=== PATIENT | female | born 1990 | race Caucasian/White ===

== ENCOUNTER 2021-07-05 09:03 | Outpatient (CLI) | payer BC, SELFPAY ==
[2021-07-05 10:00] LABS: Estradiol 40.3 pg/mL
[2021-07-08 15:28] LABS: Anti-Mullerian Hormone Female 4.42 ng/mL (0.36-10.07)
== END 2021-07-05 09:04 | disposition home or self-care (01) ==
PROVIDERS: PCP Electrodiagnostic Medicine; Visit Provider Obstetrics & Gynecology
DX: N97.9 Female infertility, unspecified (principal)
CPT/HCPCS: 82670; 83001; 83520

== ENCOUNTER → 2021-10-14 08:55 | Outpatient (BNVA) | payer BC, SELFPAY | PROVIDERS: PCP Electrodiagnostic Medicine; Visit Provider Nurse Practitioner Women's Health | DX: N92.6 Irregular menstruation, unspecified (principal) | CPT/HCPCS: 81025 ==

== ENCOUNTER → 2021-11-07 15:54 | Outpatient (BNVA) | payer BC, SELFPAY | PROVIDERS: PCP Electrodiagnostic Medicine; Visit Provider Obstetrics & Gynecology | DX: Z34.90 Encounter for supervision of normal pregnancy, unspecified, unspecified trimester (principal) | CPT/HCPCS: 80307; 84315; 85027; 86592; 86762; 86803; 86850; 86900; 87086; 87340; 87806 ==

== ENCOUNTER → 2021-11-17 10:42 | Outpatient (BNVA) | payer BC, SELFPAY | PROVIDERS: PCP Electrodiagnostic Medicine; Visit Provider Obstetrics & Gynecology | DX: Z34.80 Encounter for supervision of other normal pregnancy, unspecified trimester (principal); Z12.4 Encounter for screening for malignant neoplasm of cervix | CPT/HCPCS: 84315; 87491; 87591; 87624 ==

== ENCOUNTER → 2022-01-14 14:51 | Outpatient (BNVA) | payer BC, SELFPAY | PROVIDERS: PCP Electrodiagnostic Medicine; Visit Provider Obstetrics & Gynecology | DX: Z36.87 Encounter for antenatal screening for uncertain dates (principal) | CPT/HCPCS: 76805 ==

== ENCOUNTER 2022-02-13 10:28 | Outpatient (CLI) | payer BC, SELFPAY ==
--- NOTE | 2022-02-13 11:00 | US_ITS ---
WS: [id number] ULTRASOUND OB FOCUSED HISTORY: Follow-up anatomy. Reevaluate profile, heart, head and spine. COMPARISON: 01/14/2022 Single intrauterine gestation in cephalic position. Cervix is closed measuring 4.2 cm. Normal amount of amniotic fluid surrounds the fetus. heart rate at 144 BPM. head is better seen on today's examination. Normal size ventricles. No midline shift. Shape of the head is normal. Normal appearance of the profile. spine is normal. The distal spine is post erior during the examination but no abnormality is identified. Four-chamber heart. Normal outflow tra cts. US/US OB >= 14 weeks fetus [id number] IMPRESSION: 1. Normal four-chamber heart and outflow tracts. 2. Reevaluation of the spine, profile and head are now unremarkable.
== END 2022-02-13 10:29 | disposition home or self-care (01) ==
LOC: RAD 10:32
PROVIDERS: PCP Electrodiagnostic Medicine; Visit Provider Obstetrics & Gynecology
DX: Z34.92 Encounter for supervision of normal pregnancy, unspecified, second trimester (principal); Z36.89 Encounter for other specified antenatal screening
CPT/HCPCS: 76805

== ENCOUNTER → 2022-02-17 09:21 | Outpatient (BNVA) | payer BC, SELFPAY | PROVIDERS: PCP Family Medicine; Visit Provider Obstetrics & Gynecology | DX: Z34.00 Encounter for supervision of normal first pregnancy, unspecified trimester (principal) | CPT/HCPCS: 82950; 84315 ==

== ENCOUNTER → 2022-03-10 16:39 | Outpatient (BNVA) | payer BC, SELFPAY | PROVIDERS: PCP Family Medicine; Visit Provider Obstetrics & Gynecology | DX: Z34.00 Encounter for supervision of normal first pregnancy, unspecified trimester (principal) | CPT/HCPCS: 84315; 85027 ==

== ENCOUNTER 2022-03-26 11:45 | Outpatient (CLI) | payer BC, SELFPAY ==
[2022-03-26 11:45] VITALS: BMI 34.4
[2022-03-26 11:55] VITALS: BP 139/67; PULSE 64
--- NOTE | 2022-03-26 12:04 | US_ITS ---
WS: [id number] BIOPHYSICAL PROFILE AMNIOTIC FLUID HISTORY: DECREASED MOVEMENT COMPARISON: 02/13/2022 Cardiac activity: 131 bpm. Cervix: Obscured by the fetus. Placenta: Fundal, no previa or abruption. Placenta grade: 1 position: Breech. Parameters are as follows: Breathin Movement: 2 Tone: 2 Fluid volume: 2 Amniotic fluid index: 12.2 cm. Largest vertical pocket of amniotic fluid 5.3 cm. US/US OB BPP wo NST [id number] IMPRESSION: 1. Biophysical profile score: 6/8. 2. Normal amniotic fluid index. 3. Breech. 4. Normal cardiac activity.
[2022-03-26 12:16] VITALS: BP 130/71; PULSE 71
[2022-03-26 12:35] VITALS: BP 132/73; PULSE 69
[2022-03-26 13:05] VITALS: BP 132/73; PULSE 69; RESP 18
== END 2022-03-26 13:00 | disposition home or self-care (01) ==
LOC: OPOB 11:49 → OBGYN 11:50
PROVIDERS: PCP Family Medicine; Visit Provider Obstetrics & Gynecology
DX: O36.8190 Decreased fetal movements, unspecified trimester, not applicable or unspecified (principal); Z3A.00 Weeks of gestation of pregnancy not specified
CPT/HCPCS: 59025; 76819; 84315; 99211

== ENCOUNTER → 2022-05-05 10:53 | Outpatient (BNVA) | payer BC, SELFPAY | PROVIDERS: PCP Family Medicine; Visit Provider Obstetrics & Gynecology | DX: Z34.00 Encounter for supervision of normal first pregnancy, unspecified trimester (principal) | CPT/HCPCS: 76815; 84315; 87081 ==

== ENCOUNTER 2022-05-19 11:35 | Outpatient (CLI) | payer BC, SELFPAY ==
[2022-05-19] VITALS (7 sets, daily range): BP systolic 119–133; BP diastolic 81–90; PULSE 87–93; RESP 18; BMI 35.9
[2022-05-19 12:32] LABS: Add Urine Microscopic? NO; Charge for UA Resulting for Rev
[2022-05-19 12:33] LABS: Bilirubin Urine Neg (Negative); Blood Urine Neg (Negative); Glucose Urine UA Norm (Normal); Ketones Urine Negative (Negative); Leukocyte Esterase Urine Negative (Negative); Nitrate Urine Negative (Negative); Protein Urine Neg (Negative); Urine Appearance Clear (CLEAR); Urine Color Yellow (Yellow); Urobilinogen Urine Norm (Negative); pH Urine 7 (5-7)
[2022-05-19 12:36] LABS: Basophils % 0.2 %; Eosinophils # 0.1 10^3/uL (0.0-0.8); Eosinophils % 0.8 %; Hematocrit 38.5 % (37.0-47.0); Hemoglobin 12.7 g/dL (11.5-15.3); Lymphocytes # 1.5 10^3/uL (0.8-4.8); Lymphocytes % 15.5 %; Mean Corpuscular Hemoglobin 28.9 pg (28.0-34.0); Mean Corpuscular Volume 87.7 fl (81-99); Mean Platelet Volume 10.9 fL (7.4-10.4); Monocytes % 9.7 %; Neutrophils # 7.22 10^3/uL (1.8-7.7); Neutrophils % 73.4 %; Nucleated Red Blood Cells % 0 %; Platelet Count 264 10^3/cmm (130-400); Red Blood Count 4.39 10^6/uL (4.1-5.3); Red Cell Distribution Width 13.2 % (12.1-15.1); White Blood Count 9.8 10^3/uL (4.0-10.0)
[2022-05-19 12:52] LABS: Alanine Aminotransferase 9 U/L (0-33); Albumin Level 3.4 g/dL (3.5-5.2); Alkaline Phosphatase 169 U/L (35-105); Aspartate Amino Transferase 17 U/L (0-32); Blood Urea Nitrogen 7 mg/dL (6-20); Calcium 9.1 mg/dL (8.5-10.5); Carbon Dioxide 20 mmol/L (22-29); Chloride 107 mmol/L (98-107); Globulin 3.1 g/dL (1.3-4.6); Glucose 78 mg/dL (65-115); Osmolality Calculated 283 mOsm/kg (285-295); Sodium 138 mmol/L (136-145); Total Bilirubin 0.2 mg/dL (0.15-1.2); Total Protein 6.5 g/dL (6.6-8.7); Uric Acid 3.3 mg/dL (2.4-5.7); Urine Creatinine 24 mg/dL (28-217); Urine Protein Random 4 mg/dL
[2022-05-19 12:53] LABS: UPRO/UCREAT Ratio 0.17 mg/mg CR
== END 2022-05-19 13:10 | disposition home or self-care (01) ==
LOC: OPOB 11:42 → OBGYN 11:44
PROVIDERS: PCP Family Medicine; Visit Provider Obstetrics & Gynecology
DX: O16.9 Unspecified maternal hypertension, unspecified trimester (principal); Z3A.00 Weeks of gestation of pregnancy not specified
CPT/HCPCS: 36415; 59025; 80053; 81003; 82570; 84156; 84315; 84550; 85025; 99211

== ENCOUNTER 2022-06-02 16:24 | Inpatient (IN) | payer BC, SELFPAY ==
[2022-06-02] VITALS (19 sets, daily range): BP systolic 113–150; BP diastolic 57–88; PULSE 71–93; RESP 16–18; BMI 36.5
[2022-06-02 14:57] LABS: Basophils % 0.1 %; Eosinophils # 0.1 10^3/uL (0.0-0.8); Eosinophils % 0.8 %; Hematocrit 40.2 % (37.0-47.0); Hemoglobin 13.3 g/dL (11.5-15.3); Lymphocytes # 1.9 10^3/uL (0.8-4.8); Mean Corpuscular HGB Conc 33.1 g/dL (30.0-36.0); Mean Corpuscular Volume 87.8 fl (81-99); Mean Platelet Volume 10.9 fL (7.4-10.4); Monocytes # 0.8 10^3/uL (0.2-0.9); Monocytes % 8.7 %; Neutrophils # 5.91 10^3/uL (1.8-7.7); Neutrophils % 67.9 %; Nucleated Red Blood Cells % 0 %; Platelet Count 287 10^3/cmm (130-400); Red Blood Count 4.58 10^6/uL (4.1-5.3); Red Cell Distribution Width 13.6 % (12.1-15.1); White Blood Count 8.7 10^3/uL (4.0-10.0)
[2022-06-02 15:14] LABS: Alanine Aminotransferase 7 U/L (0-33); Albumin Level 3.8 g/dL (3.5-5.2); Alkaline Phosphatase 204 U/L (35-105); Anion Gap 17.9 (5-19); Aspartate Amino Transferase 12 U/L (0-32); Blood Urea Nitrogen 8 mg/dL (6-20); Calcium 9.3 mg/dL (8.5-10.5); Carbon Dioxide 18 mmol/L (22-29); Chloride 103 mmol/L (98-107); Globulin 3.2 g/dL (1.3-4.6); Glucose 78 mg/dL (65-115); Osmolality Calculated 277 mOsm/kg (285-295); Potassium 3.9 mmol/L (3.5-5.1); Sodium 135 mmol/L (136-145); Total Bilirubin 0.2 mg/dL (0.15-1.2); Uric Acid 3.1 mg/dL (2.4-5.7)
[2022-06-02 15:16] LABS: Add Urine Culture? No; Bacteria Urine 3+ /hpf; Bilirubin Urine Neg (Negative); Blood Urine Neg (Negative); Glucose Urine UA Norm (Normal); Ketones Urine Negative (Negative); Leukocyte Esterase Urine Negative (Negative); Nitrate Urine Negative (Negative); Protein Urine Neg (Negative); RBC Urine 0-4 /hpf (0-2); Specific Gravity, Urine 1.005 (1.005-1.030); Urine Appearance Clear (CLEAR); Urine Color Yellow (Yellow); Urobilinogen Urine Norm (Negative); pH Urine 6 (5-7)
[2022-06-02 15:27] LABS: Urine Creatinine 58 mg/dL (28-217); Urine Protein Random 10 mg/dL
[2022-06-02 15:28] LABS: UPRO/UCREAT Ratio 0.17 mg/mg CR
[2022-06-02] MEDS: miSOPROStol 100 mcg tablet 25 MCG VAGINAL ×2 (16:47→20:55)
[2022-06-02] MEDS: ampicillin 2,000 MG in sodium chloride 0.9% (plus) 50 ML 100 MG IV (18:25)
[2022-06-02] MEDS: dextrose 5%-lactated ringers 1,000 ML 125 ML IV (18:25)
[2022-06-02] MEDS: ampicillin 1,000 MG in sodium chloride 0.9% (plus) 50 ML 100 MG IV (23:55)
[2022-06-03] VITALS (37 sets, daily range): BP systolic 112–141; BP diastolic 56–87; PULSE 64–104; RESP 16–17; TEMP 36.7–37
[2022-06-03] MEDS: miSOPROStol 100 mcg tablet 25 MCG VAGINAL ×2 (00:53→05:26)
[2022-06-03] MEDS: oxytocin 30 UNIT/500 ML BAG IV (10:08)
[2022-06-03] MEDS: dextrose 5%-lactated ringers 1,000 ML 125 ML IV ×2 (12:53→20:59)
[2022-06-03] MEDS: acetaminophen 325 mg Tablet 650 MG PO (15:45)
[2022-06-03] MEDS: morphine 4 mg/mL SDV 1 mL 8 MG IM (23:48)
[2022-06-03] MEDS: promethazine 25 mg/mL SDV 1 mL IM (23:48)
[2022-06-04] VITALS (68 sets, daily range): BP systolic 110–179; BP diastolic 56–114; PULSE 59–96; RESP 15–20; TEMP 36.1–37.1
[2022-06-04] MEDS: oxytocin 30 UNIT/500 ML BAG 19 UNIT IV (09:20)
[2022-06-04] MEDS: fentaNYL 50 mcg/mL INJ 2mL IVP ×8 (13:23→23:34)
--- NOTE | 2022-06-04 14:56 | US_ITS ---
WS: [id number] ULTRASOUND OB FOCUSED HISTORY: presentation COMPARISON: 05/05/2022 Single intrauterine gestation is identified. Fetus in vertex presentation. Cervix is partially obscur ed by the head but does appear closed. heart rate at 136 BPM. Amniotic fluid index 12.3 cm. Maximal vertical pocket of amniotic fluid 4.2 cm. Placenta is fundal. Grade 2. US/US OB limited [id number] IMPRESSION: 1. Vertex presentation. 2. Normal cardiac activity.
[2022-06-04] MEDS: dextrose 5%-lactated ringers 1,000 ML 90 ML IV (21:34)
[2022-06-05] VITALS (54 sets, daily range): BP systolic 100–171; BP diastolic 49–87; PULSE 62–90; RESP 16–17; TEMP 36.7–37.1; O2SAT 97–100
[2022-06-05] MEDS: lactated ringers 1,000 ML 999 ML IV (00:53)
--- NOTE | 2022-06-05 01:26 | P.ANESUD_ITS ---
Pre-Anesthetic Update Pre-Anesthetic Assessment: Date of Surgery/Procedure: 06/05/22 Preop Jerica gnosis: IUP Proposed Procedure: labor epidural Any changes to Pre-Anesthetic Assessment?: No Last Intake: 1899 Vitals: Temperature 98.8 F 06/04/22 16:59 Temperature Source Oral 06/04/22 06:00 Pulse Rate 90 06/05/22 01:20 Respiratory Rate 20 H 06/04/22 23:34 Respiratory Effort 06/04/22 23:34 Respiratory Depth Normal 06/04/22 23:34 Respiratory Patter n 06/04/22 23:34 Blood Pressure 126/81 06/05/22 01:18 Pulse Oximetry 98 06/05/22 01:20 Oxygen Delivery Me thod 06/02/22 16:19 Exam: Pre-Anes Outpt Exam: alert, oriented x 3, clear to auscultation bilaterally and regular rate & rhythm Cardiac Studies: No Data to Display Anesthesia Procedures Epidural: Time Out Performed: Yes Consents Signed: Procedure Consent Consent: requested by attending/covering physician, from patient, risks and benefits reviewed and patient agrees to proceed Lumbar Level: L4-L5 Epidural position: sitting Epidural procedure: sterile prep of area, 1% lidocaine to numb the area, 18 g needle, negative for paresthesia passed, neg for paresthesia, test dose given, 1.5% xylocaine 1:200k epi, placed PCEA, no systemic response, sterile dressing applied, L.U.D. no apparent complications and 0.2% Ropiavacaine @ mls/hr (13) Additional Comments: GABBY 7cm
[2022-06-05] MEDS: oxytocin 30 UNIT/500 ML BAG 35 UNIT IV (02:08)
--- NOTE | 2022-06-05 06:58 | PM.PN ---
Subjective Subjective: Mrs Deven Mahajan with an EGA at 40+3 admitted for induction due to gestational hypertension. Refers she is tire and she doesnt want to continue. Vitals/I&O/Wt Last Vital Signs Temp 98.8 F 06/04/22 16:59 Pulse 82 06/05/22 06:13 Resp 20 H 06/04/22 23:34 BP 134/67 06/05/22 06:13 Pulse Ox 98 06/05/22 01:20 O2 Del Method 06/02/22 16:19 06/04/22 06/04/22 06/05/22 14:59 22:59 06:59 Intake Total 150.350 / 761.510 6396.382 / 9533.416 6640.150 / 3284.882 Balance 150.350 / 148.239 7035.382 / 0921.887 0964.150 / 3284.882 Physical Exam Narrative: GA: Alert and oriented ?3. Lungs: Clear to auscultation bilaterally. Heart: Regular rhythm and rate. Abdomen: Gravid, full the height equals dates, nontender. PICK OUT HAND: SVE; dilation: 1-2 cm, effacement: 75%, station: -2, presentation: vx, membranes: AROM clear. Extremities: no edema, no cyanosis, no calves pain. heart tracing: Basal rate: 140's bpm, Variability: moderate, Accelerations: present, Decelerations: Occasional variable, Contraction: q4-5min. Urinary Catheter Management: Winslow Latex: Cath Placed During This Visit: yes Reason for Continuing Indwelling Catheter: Other Urinary Catheter Date of Insertion: 06/05/22 Urinary Catheter Time of Insertion: 01:48 Data : 06/02/22 14:35 06/02/22 14:35 A&P Assessment and plan (1) Term : Mrs Deven Mahajan with an EGA at 40+3 admitted for induction due to gestational hypertension. She was started with misoprostol for cervical ripening, and then with Pitocin, and she have a very slow progression. A Cook cervical dilator balloon was tried without success. The Fetus overnight show occasional variable decelerations, having to reposition the patient on multiple times, making it a heart trace category 2, with no significant progression in dilation and descent after adequate induction. Patient was counseled, she refers she is tired and she does not want to proceed any longer, she was counseled regarding recommended primary low t transverse delivery due to failure to progress and nonreassuring status, her and her agreed. She was counseled regarding and was informed of the risks and benefits of primary low transverse delivery. Risks included but were not limited to bleeding, infection, and injury to the vagina, bladder, or urethra, internal organs and incomplete resolution of symptoms. The patient expressed understanding of the risks involved, all questions were answered, and the patient consented to the procedure and signed informed consent. (2) Gestational hypertension without significant proteinuria during in third trimester, antepartum: Attestations Medical Necessity Statement*: In my professional opinion per admitting diagnosis Coding Level of Care Code Acute Staff Radiographer for Brenna Fwd Diagnoses Term Z34.90 Gestational hypertension without significant proteinuria during in third trimester, antepartum O13.3
[2022-06-05] MEDS: citric acid-sodium citrate 30 mL UDC PO (07:05)
[2022-06-05] MEDS: metoclopramide 5 mg/mL SDV 2 mL 10 MG IVP (07:07)
[2022-06-05] MEDS: famotidine 20 mg/2 mL INJ IVP (07:07)
[2022-06-05] MEDS: ceFAZolin 2,000 MG in sodium chloride 0.9% (plus) 50 ML 100 MG IV (08:40)
--- NOTE | 2022-06-05 09:49 | P.OP_ITS ---
Operative Report Date of procedure: June 05, 2022 Pre-op diagnosis: Preop Diagnosis IUP at 40 weeks, failure to progress Post-op diagnosis: Same as above Procedure done: Primary low transverse delivery Surgeon: Javier Sanchez MD Estimated blood loss (mL): 500 IV fluids (mL): 1,100 Urine output (mL): 100 Procedure: After assuring informed consent, the patient was taken to the operating room and anesthesia was initiated. She was placed in the dorsal supine position with a left lateral tilt. The abdomen was prepped and draped in the usual sterile manner. A time-out procedure was performed. A Pfannenstiel skin incision was made with the scalpel and carried through to the underlying layer of fascia with the Bovie. The fascia was nicked in the midline and the incision extended laterally with the Weaver scissors. The superior aspect of the fascial incision was then grasped with Africa clamps and elevated and the underlying rectus muscle dissected off bluntly and sharp with weaver scissors. Attention was then turned to the inferior aspect of the incision which, in similar fashion, was grasped and tented up with Africa clamps and the rectus muscle dissected bluntly. The rectus muscles were then in the midline and the peritoneum identified, tented up and entered sharply with Metzenbaum s cissors. The peritoneal incision was then extended superiorly and inferiorly with good visualization of the bladder. The Angelo O retractor was then inserted and the vesicouterine peritoneum identified, grasped with pickups and entered sharply with Metzenbaum scissors. This incision was then extended laterally and the bladder flap created digitally. The uterus incised in a low transverse fashion with the scalpel. The uterine incision was then extended with the bandage scissors. The infant was then delivered in the cephalic presentation atraumatically. The nose and the mouth were suctioned with bulb and the cord clamped and cut. The cord was normal and had three vessels. Amniotic fluid was clear. The placenta was then removed manually and the uterus exteriorized and cleared of all clots and debris. The uterine incision was repaired with 0 Vicryl in a running-locked fashion. A second layer of the same suture was used to obtain excellent hemostasis. The gutters were cleared of all clots. The uterus was then returned to the abdomen. The rectus muscles were approximated with 3-0 chromic gut. The fascia was reapproximated with 0 Vicryl in an interrupted running fashion. The skin was closed with Insorb?s subcuticular absorbable pankaj. Exparel was used for pain management at the incision site. the patient tolerated the procedure well. The sponge, lap and needle counts were correct times three.
--- NOTE | 2022-06-05 12:00 | PC.NURSE ---
This IBCLC assisted patient in positioning self and for latching in a football hold. Full assist was provided as patient could not bend right arm due to IV placement. Infant was very active at the breast opening mouth, licking lips. Patient and were assisted multiple times to latch to nipple. Nipple was noted to be flat when manipulated. Patient was educated on difficult of latching with flat/inverted nipples. Options for assistance were educated on, patient chose to try latching with a nipple shield. A 24mm nipple shield was issued, education provided on use and cleaning of shield. Assisted patient on placing shield. was able to latch with hand over hand assistance, however no significant jaw movement was noted. Infant was then placed skin to skin with patient as they had visitors waiting to see them
--- NOTE | 2022-06-05 13:30 | PC.NURSE ---
Infant was placed in the football hold with nurse assistance by mom, nipple shield was placed. Infant was encouraged to latch with toot sweet drops. Infant was able to latch several times. Jaw movement was noted several times and both patient and other parent were educated on jaw movement. However, the jaw movements were very sporadic. appeared to fall asleep. Patient stated that she was very tired and would like to nap. Recommended that dad do skin to skin and patient and infant wake for another feeding around 1430
--- NOTE | 2022-06-05 14:33 | ANE.PACU2 ---
Inpatient post-anesthesia follow up: Airway intact: Yes Vital signs: Temperature 97.9 F Pulse Rate 82 Respiratory Rate 16 Blood Pressure 116/82 Pulse Oximetry 99 Oxygen Delivery Me thod Room Air Oxygen Flow Rate Fraction of Inspir ed Oxygen Hydration adequate: Yes Nausea and vomiting: No Pain level: 1 Mental status: Baseline
--- NOTE | 2022-06-05 15:10 | PC.NURSE ---
This IBCLC to bedside, patient had positioned in football hold independently and was attempting to latch with the shield. Infant was swaddled and appeared sleepy. Recommended infant be unswaddled before attempting to latch. Patient removed swaddle and repositioned infant, IBCLC assisted with shield at patient request. Patient was able to latch with no assistance. Intermittent jaw movement was noted. Educated patient on resources for after discharge.
[2022-06-05] MEDS: ketorolac 30 mg/mL INJ IVP ×2 (15:40→21:42)
[2022-06-05] MEDS: ondansetron 2 mg/ML SDV 2 mL 4 MG IVP (18:28)
--- NOTE | 2022-06-05 18:31 | PC.NURSE ---
Patient up to ambulate with standby assist by RN. Patient requested to stop at bathroom, one vomiting episode. Zofran given at this time. Patient tolerates activity fair. Told patient before walking again to have RN with her due to nausea/vomiting episode. Pt verbalized understanding. AR RN
[2022-06-05] MEDS: ferrous sulfate EC 325 mg Tablet PO (21:42)
[2022-06-05] MEDS: docusate sodium 100 mg Capsule PO (21:42)
[2022-06-05 22:51] LABS: Hemoglobin 10.9 g/dL (11.5-15.3); Mean Corpuscular Hemoglobin 29.5 pg (28.0-34.0); Mean Corpuscular Volume 89.2 fl (81-99); Platelet Count 219 10^3/cmm (130-400); Red Cell Distribution Width 13.6 % (12.1-15.1); White Blood Count 11.4 10^3/uL (4.0-10.0)
[2022-06-06] MEDS: ketorolac 30 mg/mL INJ IVP (03:50)
[2022-06-06 04:00] VITALS: BP 128/83; PULSE 72; RESP 16; TEMP 36.6
--- NOTE | 2022-06-06 08:44 | P.PN_ITS ---
Subjective Subjective: Mrs Carvalho with an EGA at 40+3 admitted for induction due to gestational hypertension. Refers she is feeling good minimal pain Vitals/I&O/Wt Last Vital Signs Temp 97.9 F 06/06/22 04:00 Pulse 72 06/06/22 04:00 Resp 16 06/06/22 04:00 BP 128/83 06/06/22 04:00 Pulse Ox 99 06/05/22 10:25 O2 Del Method 06/05/22 17:09 06/05/22 06/06/22 06/06/22 22:59 06:59 14:59 Intake Total 2713.7 / 3013.7 Output Total 1650 / 1800 650 / 2450 Balance 1063.7 / 1213.7 -650 / 563.7 Physical Exam Narrative: GA: Alert and oriented ?3. HEENT: WNL. Breasts: engorged Nipples - skin intact Heart: Regular rate and rhythm. Lungs: Clear to auscultation bilaterally. Abdomen: Bowel sounds present, nontender, minimal tenderness, incision clean and dry, no redness, pain or edema. CUSTOMER RELATIONS SPECIALIST: normal lochia. Extremities: 1+ edema, no cyanosis, no calves pain. Urinary Catheter Management: Winslow Latex: Cath Placed During This Visit: yes, but has since been removed by the nurse Reason for Continuing Indwelling Catheter: Decision to DC Catheter Urinary Catheter Date of Insertion: 06/05/22 Urinary Catheter Time of Insertion: 01:48 Date Urinary Catheter Removed: 06/06/22 Time Urinary Catheter Discontinued: 00:00 Data : 06/05/22 22:40 06/02/22 14:35 A&P Assessment and plan (1) Term delivered: Mrs. Carvalho 31-year-old female G1, P1 is status post primary low transverse delivery postop day 1. She is afebrile and hemodynamically stable. Tolerating diet well. Ambulating without difficulty. Pain well under control. Attestations Medical Necessity Statement*: In my professional opinion per admitting diagnosis Coding Level of Care Code Acute Assault Amphibious Vehicle Crewman for Chg Fwd Diagnoses Term delivered O80
[2022-06-06] MEDS: prenatal vitamin Capsule 1 CAP PO (08:48)
[2022-06-06] MEDS: ibuprofen 800 mg tablet PO ×3 (08:48→20:50)
[2022-06-06] MEDS: ferrous sulfate EC 325 mg Tablet PO ×2 (08:48→17:57)
[2022-06-06] MEDS: docusate sodium 100 mg Capsule PO ×2 (08:48→17:57)
[2022-06-06 12:34] VITALS: BP 128/84; PULSE 69; RESP 16; TEMP 37
[2022-06-06] MEDS: HYDROcodone-acetaminophen 5-325 mg Tablet PO ×2 (14:09→20:50)
[2022-06-06 18:15] VITALS: BP 126/80; PULSE 70; RESP 18; TEMP 36.4
[2022-06-06] MEDS: lanolin oint 7 gm 1 APPLIC TOPICAL (20:54)
[2022-06-06 23:01] VITALS: BP 114/64; PULSE 73; RESP 18; TEMP 36.7; O2SAT 97
[2022-06-07] MEDS: acetaminophen 325 mg Tablet 650 MG PO (01:32)
[2022-06-07 04:40] VITALS: BP 119/82; PULSE 74; RESP 18; TEMP 36.5; O2SAT 98
[2022-06-07] MEDS: HYDROcodone-acetaminophen 5-325 mg Tablet PO ×2 (05:58→11:06)
[2022-06-07] MEDS: ibuprofen 800 mg tablet PO (08:28)
[2022-06-07] MEDS: ferrous sulfate EC 325 mg Tablet PO (08:28)
[2022-06-07] MEDS: docusate sodium 100 mg Capsule PO (08:28)
[2022-06-07] MEDS: prenatal vitamin Capsule 1 CAP PO (08:28)
[2022-06-07 10:11] VITALS: BP 116/82; PULSE 82; RESP 16; TEMP 36.6
--- NOTE | 2022-06-07 10:27 | PM.OBGYDC ---
Discharge Providers SUPPLIER QUALITY SPECIALIST Date of Admission: 06/02/22 16:24 Date of Discharge: 06/07/22 Attending Provider at Admission: Javier Sanchez MD Attending Provider at Discharge: Javier Sanchez MD Primary Care Provider: Luís Barajas DO Diagnoses at Discharge Discharge Diagnosis (1) Term delivered: Status: Acute Reason for Visit Reason for Visit: hypertension Hospital Course Hospital Course Mrs. Costa 32-year-old female with a neck 20 gestational age of 40 weeks admitted to labor and delivery due to gestational hypertension for induction. Misoprostol was given for cervical ripening x2, and he was followed by the [employer] cervical dilation balloon, and oxytocin. After 48 hours of induction failed to dilate past 2 cm and a primary low termor delivery was performed due to failure to progress and heart category 2 occasional variable deceleration. The primary low termor delivery was performed without complication. Postop observation was uneventful. She is afebrile and hemodynamically stable postoperative day 2. Tolerating diet well. Ambulating without difficulty. Breast-feeding. Under control. Counseled regarding pelvic rest for 6 weeks (no sex, no tampons, no vaginal douches). Return to the emergency room if any fever, increased bleeding or pain. Information Peripartum Data: Infant Delivery Method: Physical Exam Narrative: GA: Alert and oriented ?3. HEENT: WNL. Breasts: engorged Nipples - skin intact Heart: Regular rate and rhythm. Lungs: Clear to auscultation bilaterally. Abdomen: Bowel sounds present, nontender, minimal tenderness, incision clean and dry, no redness, pain or edema. VEGETABLE TRIMMER: normal lochia. Extremities: 1+ edema, no cyanosis, no calves pain. Urinary Catheter Management: Winslow Latex: Cath Placed During This Visit: yes, but has since been removed by the nurse Reason for Continuing Indwelling Catheter: Decision to DC Catheter Urinary Catheter Date of Insertion: 06/05/22 Urinary Catheter Time of Insertion: 01:48 Date Urinary Catheter Removed: 06/06/22 Time Urinary Catheter Discontinued: 00:00 History History History 1 Term 0 0 Miscarriages/Ectopic 0 Living Children 0 Discharge Data Studies Completed and Pending Completed Studies During Hospitalization Category Date Time Status US OB limited [id number] Routine Ultrasound 06/04/22 14:56 Completed Radiology Impressions Obstetrics Ultrasound 06/04/22 14:56 IMPRESSION: 1. Vertex presentation. 2. Normal cardiac activity. Laboratory Results WBC 11.4 10^3/uL (4.0-10.0) H 06/05/22 22:40 RBC 3.70 10^6/uL (4.1-5.3) L 06/05/22 22:40 Hgb 10.9 g/dL (11.5-15.3) L 06/05/22 22:40 Hct 33.0 % (37.0-47.0) L 06/05/22 22:40 MCV 89.2 fl (81-99) 06/05/22 22:40 MCH 29.5 pg (28.0-34.0) 06/05/22 22:40 MCHC 33.0 g/dL (30.0-36.0) 06/05/22 22:40 RDW 13.6 % (12.1-15.1) 06/05/22 22:40 Plt Count 219 10^3/cmm (130-400) 06/05/22 22:40 MPV 11.0 fL (7.4-10.4) H 06/05/22 22:40 Neut % (Auto) 67.9 % 06/02/22 14:35 Lymph % (Auto) 22.0 % 06/02/22 14:35 [place] % (Auto) 8.7 % 06/02/22 14:35 Eos % (Auto) 0.8 % 06/02/22 14:35 Baso % (Auto) 0.1 % 06/02/22 14:35 Neut # (Auto) 5.91 10^3/uL (1.8-7.7) 06/02/22 14:35 Lymph # (Auto) 1.9 10^3/uL (0.8-4.8) 06/02/22 14:35 [place] # (Auto) 0.8 10^3/uL (0.2-0.9) 06/02/22 14:35 Eos # (Auto) 0.1 10^3/uL (0.0-0.8) 06/02/22 14:35 Baso # (Auto) 0.0 10^3/uL (0.0-0.1) 06/02/22 14:35 Nucleated RBC % (auto) 0 % 06/02/22 14:35 Nucleated RBCs # 0.0 /100WBC 06/02/22 14:35 Sodium 135 mmol/L (136-145) L 06/02/22 14:35 Potassium 3.9 mmol/L (3.5-5.1) 06/02/22 14:35 Chloride 103 mmol/L (98-107) 06/02/22 14:35 Carbon Dioxide 18 mmol/L (22-29) L 06/02/22 14:35 Anion Gap 17.9 (5-19) 06/02/22 14:35 BUN 8 mg/dL (6-20) 06/02/22 14:35 Creatinine 0.5 mg/dL (0.5-0.9) 06/02/22 14:35 GFR Calculation 143.0 mL/min (90-130) H 06/02/22 14:35 Glucose 78 mg/dL (65-115) 06/02/22 14:35 Calculated Osmolality 277 mOsm/kg (285-295) L 06/02/22 14:35 Uric Acid 3.1 mg/dL (2.4-5.7) 06/02/22 14:35 Calcium 9.3 mg/dL (8.5-10.5) 06/02/22 14:35 Total Bilirubin 0.2 mg/dL (0.15-1.2) 06/02/22 14:35 AST 12 U/L (0-32) 06/02/22 14:35 ALT 7 U/L (0-33) 06/02/22 14:35 Alkaline Phosphatase 204 U/L (35-105) H 06/02/22 14:35 Total Protein 7.0 g/dL (6.6-8.7) 06/02/22 14:35 Albumin 3.8 g/dL (3.5-5.2) 06/02/22 14:35 Globulin 3.2 g/dL (1.3-4.6) 06/02/22 14:35 Urine Color Yellow (Yellow) 06/02/22 14:30 Urine Appearance Clear (CLEAR) 06/02/22 14:30 Urine pH 6 (5-7) 06/02/22 14:30 Ur Specific Comfort 1.005 (1.005-1.030) 06/02/22 14:30 Urine Protein Neg (Negative) 06/02/22 14:30 Urine Glucose (UA) Norm (Normal) 06/02/22 14:30 Urine Ketones Negative (Negative) 06/02/22 14:30 Urine Blood Neg (Negative) 06/02/22 14:30 Urine Nitrate Negative (Negative) 06/02/22 14:30 Urine Bilirubin Neg (Negative) 06/02/22 14:30 Urine Urobilinogen Norm mg/dL (Negative) 06/02/22 14:30 Ur Leukocyte Esterase Negative (Negative) 06/02/22 14:30 Urine RBC 0-4 /hpf (0-2) H 06/02/22 14:30 Urine WBC 5-10 /hpf (0-5) H 06/02/22 14:30 Ur Squamous Epith Cells 10-15 /hpf (0-5) H 06/02/22 14:30 Amorphous Sediment Not Reportable 06/02/22 14:30 Urine Bacteria 3+ /hpf (NONE) H 06/02/22 14:30 U Random Total Protein 10 mg/dL 06/02/22 14:30 Urine Creatinine 58 mg/dL (28-217) 06/02/22 14:30 Protein/Creatinin Ratio 0.17 mg/mg CR 06/02/22 14:30 Procedures Performed Primary low transverse delivery Vitals Last Vital Signs Temp 97.9 F 06/07/22 10:11 Pulse 82 06/07/22 10:11 Resp 16 06/07/22 10:11 BP 116/82 06/07/22 10:11 Pulse Ox 98 06/07/22 04:40 O2 Del Method 06/07/22 04:40 Discharge Plan Discharge Patient Disposition: Home Condition: Stable Prescriptions: New acetaminophen 325 mg capsule 325 mg PO Q4H PRN (Reason: operative pain) Qty: 60 0RF ibuprofen 800 mg tablet 800 mg PO TID PRN (Reason: pain) Qty: 60 0RF hydrocodone-acetaminophen 5-325 mg tablet 1 tab PO Q4H PRN (Reason: pain) Qty: 30 0RF ferrous sulfate [Iron (ferrous sulfate)] 325 mg (65 mg iron) tablet 325 mg PO BID Qty: 60 0RF docusate sodium [Colace] 100 mg capsule 100 mg PO BID Qty: 60 0RF Continued epinephrine 0.3 mg/0.3 mL auto-injector 0.3 mg IM Q10M PRN (Reason: Anaphylaxis) Rx Instructions: for 2 doses prenat.vits,lalit,hol-aggd-inrwv Tablet 1 tab PO DAILY (DME) breast pump Device See Rx Instructions .Route Qty: 1 0RF Rx Instructions: As directed acetaminophen [Tylenol] 325 mg capsule 325 mg PO QID PRN (Reason: Pain (Scale Score 1-3)) Discharge Orders: Discharge Order (Routine); Ordered 06/07/22 Ordered By: Javier Sanchez Referrals: Javier Sanchez MD [Physician] - 2 weeks Discharge Diet: Advance as tolerated Discharge Activity: Limit activity as instructed Patient Instructions: Depression (DC), Bleeding (DC), Preeclampsia and Eclampsia After Delivery (GEN), OB WHC, OB Discharge Report, OB Food/Drug Interaction Guide, Opioid Safety, OB Home Care Activity Restrictions/Additional Instructions: 1. Please call [facility] on next working day to make your post-operative appointment in 2 weeks. 2. Please stay home until you come back to the clinic on first post-operative check up. 3. Please follow instructions on your medications CAREFULLY. 4. If you have abdominal incision, do not cover it unless dressing is necessary because of drainage. OK to shower, but avoid bath. Leave steri-strips until they fall off. If they are still on one week after surgery, you may remove them. 5. If you had vaginal surgery or vaginal repair, Dr. Sanchez may instruct you to take SITZ bath. 6. Yellow, blood tinged odorous vaginal discharge is usually normal after hysterectomy or vaginal surgeries. 7. No sexual intercourse, tampons, or douches until you are completely released from the post-operative care. 8. Avoid constipation by eating right and maybe using some Metamucil or Milk of Magnesia. 9. All prescription refills are given during the working hours. Please do no wait till it runs out. Call the clinic at [phone] before your medication runs out. The clinic will get in touch with your doctor to prescribe medications if necessary. 10. Please remain within 40 mile radius from our hospital because emergencies do happen now and then during the post-operative period. 11. If you have stairs at home, take one step at a time slowly and minimize the number of trips. It helps to stay in one floor for the next few days. No lifting except what you can lift by one hand until you are released from the post-operative care. 12. Driving is discouraged until you are well healed. It may be 3-4 weeks before you feel strong enough to drive. You should be able to turn and look through the rear window without pain and you should be able to push the brake pedal very hard without pain before you drive. No fast rules, but SAFETY should be your primary concern. DO NOT drive if you are on sedating medications such as narcotics. 13. Call the clinic (during working hours) to make urgent appointment or go to the Emergency room, if any of the following occurs: i. Vaginal bleeding becomes heavy, more than a period. ii. Incision becomes red and sore, or drains pus. iii. Your temperature is over 100.4 or you have chill. iv. IV site becomes red and swollen (a little ``knot?? is usually OK) v. Persistent nausea and vomiting vi. Persistent constipation or diarrhea vii. Rash or allergic reaction to medications. Discharge Attestations SUPPLIER QUALITY SPECIALIST Time Spent in Discharge Care*: greater than 30 min Coding Level of Care Code Acute Informatics Physician for Chg Fwd Diagnoses Term delivered O80
[2022-06-07 11:45] VITALS: BP 116/82; PULSE 82; RESP 16; TEMP 36.6; O2SAT 99
== END 2022-06-07 11:45 | disposition home or self-care (01) | DRG 788 ==
LOC: OPOB 16:24 → OBGYN 16:24
PROVIDERS: Admitting Provider Obstetrics & Gynecology; PCP Family Medicine; Visit Provider Obstetrics & Gynecology
PROC: (CPT 59514; principal; 2022-06-05 08:40)
DX: O13.4 Gestational [pregnancy-induced] hypertension without significant proteinuria, complicating childbirth (principal); O76 Abnormality in fetal heart rate and rhythm complicating labor and delivery; Z3A.40 40 weeks gestation of pregnancy; Z37.0 Single live birth; O62.0 Primary inadequate contractions
CPT/HCPCS: 36415; 51702; 59025; 76815; 80053; 81001; 82570; 83986; 84156; 84315; 84550; 85025; 85027; 96372; 96374; 96376; 98960; 99211; C9290; J0290; J1885; J2270; J2274; J2370; J2405; J2550; J2765; J2795; J3010; J3490

== ENCOUNTER → 2022-07-28 10:20 | Outpatient (BNVA) | payer BC, SELFPAY | PROVIDERS: PCP Family Medicine; Visit Provider Obstetrics & Gynecology | DX: Z30.430 Encounter for insertion of intrauterine contraceptive device (principal) | CPT/HCPCS: 81025 ==

== ENCOUNTER → 2022-11-02 16:45 | Outpatient (BNVA) | payer BC, SELFPAY | PROVIDERS: PCP Family Medicine; Visit Provider Obstetrics & Gynecology | DX: N93.9 Abnormal uterine and vaginal bleeding, unspecified (principal) | CPT/HCPCS: 83001; 84144; 84443 ==

== ENCOUNTER → 2023-02-02 08:40 | Outpatient (BNVA) | payer BC, SELFPAY | PROVIDERS: PCP Family Medicine; Visit Provider Obstetrics & Gynecology | DX: N92.1 Excessive and frequent menstruation with irregular cycle (principal) | CPT/HCPCS: 84439; 84443 ==

== ENCOUNTER → 2023-03-03 10:33 | Outpatient (BNVA) | payer BC, SELFPAY | PROVIDERS: PCP Family Medicine; Referring Provider Dermatology; Visit Provider Nurse Practitioner Family | DX: S89.92XA Unspecified injury of left lower leg, initial encounter (principal); X58.XXXA Exposure to other specified factors, initial encounter | CPT/HCPCS: 73560; 73565 ==

== ENCOUNTER 2023-03-16 06:55 | Outpatient (CLI) | payer BC, SELFPAY ==
--- NOTE | 2023-03-16 07:15 | MR_ITS ---
WS: [id number] MRI LEFT KNEE HISTORY: pain COMPARISON: Radiographs 03/03/2023 Anterior cruciate ligament: Abnormal signal throughout the ACL. There is thickening and increased sig nal but also abnormal contour. Double PCL sign is also evident. Posterior cruciate ligament: Intact. Medial collateral ligament: Intact. Posterior lateral corner structures: Intact. Medial menisci: Abnormal shape and contours of both anterior and posterior horns. Blunting of the kristal e edge of the posterior horn. Small caliber posterior horn. There is a soft tissue fragment measuring 6 mm in the intercondylar notch. Abnormal shape of the anterior horn. Lateral meniscus: Anterior horn is normal. Increase fluid along the posterior inferior capsule consis tent with a meniscocapsular separation. Extensor mechanism: Distal quadriceps tendon and patellar tendons are intact. Fluid and soft tissue: Moderate-sized suprapatellar joint effusion. Moderate-sized Marte's cyst. Mild soft tissue edema surrounding the knee. Osseous and articular structures: Patellofemoral compartment: Normal. Medial compartment: No significant joint space narrowing or marrow edema. Cartilage is intact. Lateral compartment: No significant joint space narrowing. There is thin area of linear marrow edema along the tibial plateau. This is predominantly through the metaphysis and extends to the posterior t ibial plateau and crosses the midline. MR/MR knee LT wo con* [id number] IMPRESSION: 1. Complex injury LEFT knee. 2. Abnormal contour of the ACL. At least partial/high-grade tears suspected. T here is a double PCL sign which is typically seen with ACL tear. 3. Abnormal shape, contour and position anterior and posterior horns of the me dial meniscus. Blunting of the free edge of the posterior horn and small calibe r. Abnormal shape and partial extrusion of the anterior horn. Anterior horn dorina ears fragmented. Increased soft tissue in the intercondylar notch is probably a flipped meniscal fragment. 4. Posterior inferior meniscal capsular separation lateral meniscus. 5. Moderate-sized suprapatellar joint effusion and Marte's cyst and mild soft tissue edema. 6. Linear marrow edema involving the tibial plateau. 7. Soft tissue fragment near the intercondylar notch. This may be a meniscal f ragment.
== END 2023-03-16 06:56 | disposition home or self-care (01) ==
LOC: RAD 06:56
PROVIDERS: PCP Family Medicine; Visit Provider Nurse Practitioner Family
DX: S89.92XA Unspecified injury of left lower leg, initial encounter (principal); X58.XXXA Exposure to other specified factors, initial encounter; M71.22 Synovial cyst of popliteal space [Baker], left knee
CPT/HCPCS: 73721

== ENCOUNTER 2023-04-08 05:41 | Day surgery (SDC) | payer BC, SELFPAY ==
[2023-04-07 12:28] VITALS: BMI 35.5
[2023-04-08] VITALS (10 sets, daily range): BP systolic 116–164; BP diastolic 84–120; PULSE 73–108; RESP 16–18; TEMP 36.1–36.2; O2SAT 95–100; BMI 35.6
--- NOTE | 2023-04-08 06:38 | P.HPUD_ITS ---
Surgery/Procedure H&P Update DATE OF PROCEDURE: April 08, 2023 DATE H&P PERFORMED: 03/22/23 CHANGES TO PREVIOUS DOCUMENTATION: None. No change in HPI from office visit on 03/22/2023. Patient has a known bucket-handle medial meniscus tear on the left knee. Talk possible partial ACL tear but fibers appear to be intact with an appreciable endpoint in the office we talked about her treatment options and through shared decision making she elects to proceed with Left knee diagnostic and surgical arthroscopy with partial medial meniscectomy versus repair as well as possible arthroscopic assisted ACL reconstruction with quadriceps tendon autograft. We will evaluate her knee under anesthesia from the standpoint of a Radha's and pivot shift as well as intra operatively will assess the ACL. We talked about the roles of meniscectomy versus repair pertaining to her meniscus tear she understands and agrees with current plan. All questions been answered. Elects proceed with surgery. PREOP DIAGNOSIS: Left knee meniscus tear, possible partial ACL tear PRIMARY INDICATION FOR PROCEDURE: Left knee medial meniscus tear, possible marginal ACL tear PLANNED PROCEDURE: Operation Date: 04/08/23 07:00 Proposed Procedures p LEFT KNEE DIAGNOSTIC AND SURGICAL ARTHROSCOPY MEDIAL MENISCUS REPAIR VERSUS PA RTIAL MENISCECTOMY POSSIBLE ANTERIOR CRUCIATE LIGAMENT RECONSTRUCTION WITH QUAD TENDON AUTOGRAFT 17355,S83.219A,S83.519A(Left) - DO odilia Blair ACL Repair Anterior Cruciate Ligament Reconstruction(Left) - Ramon Owens DO
[2023-04-08] MEDS: sodium chloride 0.9% 1,000 ML 30 ML IV (06:39)
[2023-04-08] MEDS: ketorolac 30 mg/mL INJ IVP (06:39)
[2023-04-08] MEDS: acetaminophen 1,000 MG/100 ML PIGGYBACK 400 MG IV (06:39)
[2023-04-08] MEDS: scopolamine 1.5 Patch 1 PATCH TRANSDERMA (06:39)
[2023-04-08 06:52] LABS: OR HCG Qualitative Urine Negative (Negative)
[2023-04-08] MEDS: ceFAZolin 2,000 MG in sodium chloride 0.9% (plus) 50 ML 100 MG IV (07:01)
--- NOTE | 2023-04-08 07:44 | SUR.OPER ---
Family Notified Of Patient's Status Via Phone.
--- NOTE | 2023-04-08 07:51 | SUR.OPER ---
Family Notified Of Patient's Status Via Phone.
[2023-04-08] MEDS: lidocaine-epi 2% 20 mL INJ INJECTION (07:54)
--- NOTE | 2023-04-08 08:18 | P.ANESASSM_ITS ---
Pre-Anesthetic Assessment Height/Weight: Height 1.7 m Weight 103.419 kg Temp Pulse Resp BP Pulse Ox O2 Del Method 96.9 F L 79 18 131/89 99 Room Air 04/08/23 06:10 04/08/23 06:10 04/08/23 06:10 04/08/23 06:10 04/08/23 06:10 04/08/23 06:11 Preop Diagnosis: Left knee meniscus tear, possible partial ACL tear Operation Date: 04/08/23 07:00 Proposed Procedures p LEFT KNEE DIAGNOSTIC AND SURGICAL ARTHROSCOPY MEDIAL MENISCUS REPAIR VERSUS PARTIAL MENISCECTOMY POSSIBLE ANTERIOR CRUCIATE LIGAMENT RECONSTRUCTION WITH QUAD TENDON AUTOGRAFT 40417,S83.219A,S83.519A(Left) - Ramon Owens DO s ACL Repair Anterior Cruciate Ligament Reconstruction(Left) - Ramon Owens DO Familial anesthetic complications: none Was Beta Layne taken within 24 hours: N/A Was Clonidine taken within 24 hours: N/A Last intake: Intake Last Liquid Date 04/07/23 Last Liquid Time 22:00 Last Solid Date 04/07/23 Last Solid Time 18:00 Social No alcohol and No tobacco Exam alert, oriented x 3, clear to auscultation bilaterally and regular rate & rhythm Airway Submandibular: within normal limits Cervical ROM: within normal limits Mallampati: Class I Dentition: full Metabolic Morbid Obesity Anesthetic Plan ASA status: 2 Anesthesia: General and Regional (specify below) (Discussed adductor blk for postop pain) Medications/Allergies Home Medications Medication Instructions Recorded Confirmed Last Taken Type epinephrine 0.3 mg/0.3 mL 0.3 mg IM Q10M PRN Anaphylaxis 07/04/21 04/07/23 Unknown History injection, auto-injector aspirin 81 mg tablet,delayed 81 mg PO DAILY 2 weeks #14 tabs 04/08/23 Unknown Rx release hydrocodone 5 mg-acetaminophen 325 1 tab PO Q6H PRN pain 5 days #20 04/08/23 U nknown Rx mg tablet tabs ondansetron 4 mg disintegrating 4 mg PO DAILY PRN nausea and 04/08/23 Unknown Rx tablet vomiting 3 days #9 tabs Allergies Allergy/AdvReac Type Severity Reaction Status Date / Time Sulfa (Sulfonamide Allergy Severe rash Verified 04/07/23 12:27 Antibiotics) venom-honey bee Allergy Severe anaphylaxis Verified 04/07/23 12:27 Current Medications Generic Name Dose Route Start Last Admin Trade Name Ortizq PRN Reason Stop Dose Admin Sodium Chloride 1,000 mls @ 30 mls/hr 04/08/23 06:00 04/08/23 06:39 Sodium Chloride 0.9% IV 04/09/23 05:59 30 mls/hr .Q24H CLARENCE Administration Scopolamine 1 patch 04/08/23 05:55 04/08/23 06:39 Scopolamine 1.5 Patch TRANSDERMA 1 patch ONCE PRN Administration anesthetic related nausea PFSH Anesthesia Medical History No pertinent past medical history neghx: htn,dm,thyroid,dvt/pe PCP: Surgical History No pertinent past surgical history Family History Family/Other Diabetes paternal uncle Thyroid condition maternal aunt Grandfather Hyperlipidemia paternal Stroke paternal Hypertension paternal Heart disease maternal and paternal Thyroid condition maternal Grandmother Hyperlipidemia paternal Breast cancer paternal--dx age 50's Colon cancer paternal dx age 60's Mother Thyroid condition Denies family history of Ovarian cancer Uterine cancer Social History Smoking and tobacco status: never smoked Substance/Drug Use: never Data Anesthesia Blood Bank 04/08/23 06:30 Blood Type A Positive Rho(D) Type Positive Antibody Screen Negative Cardiac Studies: No Data to Display
--- NOTE | 2023-04-08 08:25 | SUR.OPER ---
Family Notified Of Patient's Status Via Phone.
--- NOTE | 2023-04-08 08:51 | P.OP_ITS ---
Operative Report Date of procedure: April 08, 2023 Pre-op diagnosis: Preop Diagnosis Left knee meniscus tear, possible partial ACL tear Reading Specialist: Abelino Owens PA-C PA-C assistance was necessary for the completion of this case in order to help by assisting with multiple instrumentations as well as hold leg position for satisfactory execution of complex bucket-handle medial meniscus tear. Procedure: Post-op diagnosis: Left knee bucket-handle medial meniscus tear Left knee extensive synovitis Procedure done: Left knee diagnostic and surgical arthroscopy bucket-handle meniscus repair (all inside) 6 fiber stitch sutures Left knee diagnostic and surgical arthroscopy with extensive synovectomy of the medial lateral and patellofemoral compartments Surgeon: Ramon Owens DO Estimated blood loss: 2 Tourniquet: 53 minutes IV fluids: See anesthesia record Complications: None Findings: See operative report narrative Condition: stable Disposition: same day Brief History: Patient is a 32-year-old female with left knee pain.? Patient has failed conservative treatment who has been worked up for left knee pain in the outpatient setting. MRI findings consistent with tear of the medial meniscus tear is a bucket-handle in nature. There appears to be intact ACL fibers on my inspection on radiology as well as she has a stable Radha's on examination, however given radiologist potential read for possible partial ACL tear through shared decision-making she agreed for assessment under anesthesia with left knee diagnostic and surgical arthroscopy with partial medial meniscectomy versus repair and possible ACL reconstruction with quad tendon autograft. Patient understand the ins and outs of the procedure the risk benefits complication alternatives to treatment options.? Understanding risk of surgery they agree to proceed with surgical intervention.? Understanding this and patient agree to proceed with surgical intervention all questions answered. Procedure: Patient seen and evaluated in the preoperative holding area.? Consent was reviewed and signed with patient.? Correct extremity was then marked.? Patient seen evaluated Anesthesia Department once cleared for surgery patient was taken back to the operative suite.? Patient was transported onto the OR table in supine position.? Foot of the bed was then subsequently dropped in the operative knee was suspended for appropriate manipulation and execution of procedure. The right knee was then secured onto a armboard and was well-padded in stable po sition. All bony prominences well-padded patient was appropriate secured to the bed.? Once appropriately anesthetized a nonsterile tourniquet was applied to the left thigh.? The left lower extremity was then prepped and draped in standard orthopedic fashion.? Final timeout performed.? Patient received appropriate preoperative antibiotics. Esmarch tourniquet was used exsanguinate the left lower extremity and tourniquet was insufflated to 250 mmHg. A standard 2 portal vertical incision diagnostic and surgical arthroscopy of the left knee was performed in standard fashion.? Small stab incision made in the inferolateral portal introduced trocar and arthroscope into the suprapatellar pouch.? Suprapatellar pouch was subsequently visualized and found to have significant synovitis but no loose bodies.? Patient had noticeable significant inflamed infrapatellar fat pad and thickening hypertrophic within the patellofemoral compartment.? ?The medial gutter was free of loose bodies I then introduced the arthroscope into the medial compartment.? Within the medial compartment I then established my inferior medial working portal utilizing spinal needle outside in technique.? Once established I then visualized our articular cartilage of the medial compartment with a valgus stress.? 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 Next I inspected the m eniscus.? With an arthroscopic probe was utilized to visual? all aspects of the meniscus.? Patient was found to have a large bucket-handle meniscus tear this was flipped within the intercondylar notch. Overall this was within the red red zone on the periphery of the meniscus and overall had stable meniscal tissue for amenability for repair and given her young age and good cartilage elected to pro ceed with all inside medial meniscus bucket-handle repair. I then inspected the ACL the ACL was found to be completely intact with no lift off off the back wall this was stable and a Radha's was performed intraoperatively and was found to be stable with direct visualization of the ACL under arthroscopic imaging I also performed a pivot shift examination and the knee was found to have a negative pivot shift determination the ACL was intact. Next I completed the diagnostic and surgical arthroscopy PCL and ACL were intact. patient had significant thickening of the infrapatellar fat pad spanning into the medial and lateral compartments.? I then performed an extensive synovectomy with the arthroscopic shaver of the patellofemoral medial and lateral compartments as well as the intercondylar notch. Advance the scope into the retrocruciate space and no loose bodies were found. Next I introduced the arthroscope into the lateral compartment the lateral compartment was found to have grade 0 chondromalacia.? Lateral meniscus was found to be intact.? The root was intact.? This completed my work of the lateral compartment and then performed a synovectomy of the lateral compartment.? Next of the arthroscope was placed into the lateral gutter and this was free of loose bodies.? Finally I reintroduced the arthroscope into the patellofemoral compartment.? The patellofemoral was found to have grade 0 chondromalacia of the patellofemoral compartment.? At this point I utilized arthroscopic shaver as well as thermal wand to perform extensive synovectomy of the patellofemoral compartment. This completed my work of the patellofemoral space.? I then revisualize the medial compartment and debrided and roughened the edges of the torn meniscus to stimulate a rough border for meniscal repair to occur with an arthroscopic shaver. I now transition to placement and repair of the medial meniscus switch camera positions and move my portal into the medial working portal under this I then valgus size the knee and utilizing a spinal needle performed a controlled partial release of the MCL to have appropriate visualization and to decrease the articular chondral injury while performing forming the repair of the meniscus. I utilized a blunt probe to reduce the meniscus and then elected to perform an inside-out technique I utilized my assistance at this time to help with shuttling of instrumentation as well as holding leg position so appropriate repair could be performed. I for started with the axilla of the tear and utilized an Arthrex fiber stitch all inside suture technique this was placed into the axilla of the tear and secured the tear in appropriate position with excellent opposition and fixation excess suture was then cut. I then performed this in sequential fashion combination of horizontal as well as mattress sutures throughout the entirety of the meniscal tear with totaling of 6 Arthrex fiber stitch suture and appropriately staggered fashion with a few millimeters between each tear this had excellent spread and excellent fixation all excess sutures were then cut I then introduced the arthroscopic probe and it was determined that patient the bucket-handle meniscus repair had excellent opposition. I was satisfied with this repair. Lastly I introduced shaver to the intercondylar notch debrided the lateral femoral condyle anterior to the ACL footprint utilizing a shaver and then subsequently utilized 0.062 K wire on a drill and subsequently performed bone marrow stimulation which had excellent bone marrow fat lobules noted in order to help with bone marrow stimulation and meniscal repair healing. This completed our procedure All fluid was suctioned from the joint.? ?All instruments were withdrawn.? Portal sites were closed with interrupted nylon suture. Local was injected around the portal sites.? Portal sites were then covered with with Xeroform 4 x 4's ABD Curlex and Michael wrap. She was placed into a hinged brace locked in full extension. Patient was then subsequently awakened from anesthesia and taken to PACU in stable condition. Disposition: Patient taken to PACU in stable condition recovering well.? Will receive appropriate discharge structure as well as pain medication postoperatively as well as? DVT prophylaxis.we will have patient follow-up with us in the office in 2 weeks.? We will toe-touch weightbearing to the operative extremity. She will keep her knee brace locked in full extension and will begin to progress as she goes through the meniscal repair protocol with therapy. Patient understands and agrees with current plan.? All questions answered.
--- NOTE | 2023-04-08 09:00 | PM.OP2 ---
Brief Operative Note Date of procedure: 04/08/23 <PAO Myrick - Last Filed: 04/08/23 09:08> 04/08/23 <Ramon Owens DO - Last Filed: 04/08/23 09:10> Pre-op diagnosis: Left knee meniscus tear, possible partial ACL tear <PAO Myrick - Last Filed: 04/08/23 09:08> Post-op diagnosis: other (Left knee meniscus tear and extensive synovitis) <PAO Myrick - Last Filed: 04/08/23 09:08> Procedure Done: Left knee diagnostic and surgical arthroscopy with bucket-handle meniscus repair and extensive synovectomy and bone marrow stimulation. <PAO Myrick - Last Filed: 04/08/23 09:08> Surgeon: Ramon Owens <PAO Myrick - Last Filed: 04/08/23 09:08> Estimated blood loss (mL): 5 <PAO Myrick - Last Filed: 04/08/23 09:08> Complications: none <PAO Myrick - Last Filed: 04/08/23 09:08> Post-op Plan: Toe-touch weightbearing at locked in extension wearing knee brace. Will follow physical therapy meniscus repair protocol. Utilize crutches as needed Ice and elevate as needed for pain and swelling Take pain medication as prescribed Take antinausea medication as needed Take aspirin 81 mg once daily for blood clot prevention May supplement for pain with ibuprofen [id number] as needed Patient should leave dressing on in place for 72 hours, at that time may remove all dressings leave sutures in place may rinse incisions with warm soapy water pat dry and redress with dry dressing. No baths or soaks Follow-up in the orthopedic office in 2 weeks Contact the office for any questions or concerns <PAO Myrick - Last Filed: 04/08/23 09:08> Condition: stable <PAO Myrick - Last Filed: 04/08/23 09:08> Disposition: PACU <PAO Myrick - Last Filed: 04/08/23 09:08> Coding Level of Care Code Acute Code for Chg Fwd
--- NOTE | 2023-04-08 09:08 | P.PCN_ITS ---
PACU note Narrative: Patient is a 32-year-old female that just underwent left knee diagnostic and surgical arthroscopy bucket-handle meniscus repair and extensive synovectomy with bone marrow stimulation. Pt transferred to PACU in stable condition. She is awake and alert. Toes are warm with normal perfusion. pt can wiggle toes and plantarflex and dorsiflex foot. pt able to perform straight leg raise, Femoral nerve intact. Distal pulses are palpable toes are warm and well- perfused. Exam: awake Disposition: discharged
[2023-04-08] MEDS: HYDROcodone-acetaminophen 5-325 mg Tablet 1 TAB PO (09:53)
--- NOTE | 2023-04-08 13:29 | ANE.PACU2 ---
Inpatient post-anesthesia follow up: Airway intact: Yes Vital signs: Temperature 97.0 F Pulse Rate 73 Respiratory Rate 16 Blood Pressure 146/100 Pulse Oximetry 98 Oxygen Delivery Me thod Room Air Oxygen Flow Rate 6 Fraction of Inspir ed Oxygen Hydration adequate: Yes Nausea and vomiting: No Pain level: 2 Mental status: Baseline
== END 2023-04-08 10:20 | disposition home or self-care (01) ==
PROVIDERS: PCP Family Medicine; Visit Provider Student in an Organized Health Care Education/Training Program
PROC: (CPT 29870; principal; 2023-04-08 07:00)
DX: S83.201A Bucket-handle tear of unspecified meniscus, current injury, left knee, initial encounter (principal); X58.XXXA Exposure to other specified factors, initial encounter; M65.9 Synovitis and tenosynovitis, unspecified; E66.01 Morbid (severe) obesity due to excess calories; Z68.35 Body mass index [BMI] 35.0-35.9, adult; Z79.82 Long term (current) use of aspirin
CPT/HCPCS: 29876; 29882; 36415; 81025; 84703; 86850; 86900; C1713; J0131; J0690; J1100; J1170; J1885; J2405; J2704; J3010; J3490; J7030

== ENCOUNTER → 2023-04-27 10:58 | Outpatient (BNVA) | payer BC, SELFPAY | PROVIDERS: PCP Family Medicine; Visit Provider Student in an Organized Health Care Education/Training Program | DX: E66.9 Obesity, unspecified (principal); N92.1 Excessive and frequent menstruation with irregular cycle; R23.2 Flushing; R63.5 Abnormal weight gain; R68.89 Other general symptoms and signs; Z83.49 Family history of other endocrine, nutritional and metabolic diseases | CPT/HCPCS: 36415; 80061; 83036; 83516; 84403; 86376 ==

== ENCOUNTER 2023-04-30 07:20 | Outpatient (RCR) | payer BC, SELFPAY | END 2023-05-22 23:59 | disposition home or self-care (01) | LOC: SPT 07:20 | PROVIDERS: PCP Family Medicine; Visit Provider Student in an Organized Health Care Education/Training Program | DX: Z98.890 Other specified postprocedural states (principal) | CPT/HCPCS: 97110; 97161 ==

== ENCOUNTER 2023-05-23 06:00 | Outpatient (RCR) | payer BC, SELFPAY | END 2023-06-22 23:59 | disposition home or self-care (01) | LOC: SPT 06:00 | PROVIDERS: PCP Family Medicine; Visit Provider Student in an Organized Health Care Education/Training Program | DX: Z47.1 Aftercare following joint replacement surgery (principal); Z96.652 Presence of left artificial knee joint | CPT/HCPCS: 97110 ==

== ENCOUNTER 2023-06-23 06:00 | Outpatient (RCR) | payer BC, SELFPAY | END 2023-07-22 23:59 | disposition home or self-care (01) | LOC: SPT 06:00 | PROVIDERS: PCP Family Medicine; Visit Provider Student in an Organized Health Care Education/Training Program | DX: Z98.890 Other specified postprocedural states (principal) | CPT/HCPCS: 97110 ==

== ENCOUNTER 2023-07-23 06:00 | Outpatient (RCR) | payer BC, SELFPAY | END 2023-08-22 23:59 | disposition home or self-care (01) | LOC: SPT 06:00 | PROVIDERS: PCP Family Medicine; Visit Provider Student in an Organized Health Care Education/Training Program | DX: Z98.890 Other specified postprocedural states (principal) | CPT/HCPCS: 97110 ==

== ENCOUNTER → 2023-07-23 09:04 | Outpatient (BNVA) | payer BC, SELFPAY | PROVIDERS: PCP Family Medicine; Visit Provider Nurse Practitioner Family | DX: R51.9 Headache, unspecified (principal) | CPT/HCPCS: 87400; 87426 ==